=== PATIENT | male | born 1970 | race Caucasian/White ===

== ENCOUNTER → 2019-12-07 | Outpatient (CLI) | payer MEDICARE ==
--- NOTE | 2019-12-07 12:58 | XR ---
EXAMINATION TYPE: XR chest 2V DATE OF EXAM: 12/07/2019 COMPARISON: 08/03/2012 HISTORY: Shortness of breath TECHNIQUE: Frontal and lateral views of the chest are obtained. FINDINGS: Scattered senescent parenchymal changes noted. Hyperinflation compatible with COPD. Right lower lobe infiltrate noted. Correlate for pneumonia. No evidence for atelectasis. Heart size is stable. Mediastinal structures are stable and grossly unremarkable. No evidence for hilar prominence. Degenerative changes dorsal spine. IMPRESSION: 1. Right lower lobe infiltrate noted. Correlate for pneumonia.
--- NOTE | 2019-12-07 14:08 | CT ---
EXAMINATION TYPE: CT chest w con DATE OF EXAM: 12/07/2019 COMPARISON: Radiograph same day HISTORY: 49-year-old male Cough and shortness of breath. J15.0, klebsiella pneumonia. TECHNIQUE: Contiguous axial scanning of the chest after the administration of 80ml mL of Isovue 300. Coronal/sagittal reconstructions performed. CT DLP: 679.9mGycm. Automatic exposure control utilized for a dose reduction. FINDINGS: Left PICC tip seen to the lower left brachiocephalic vein. Heart normal size without pericardial effusion. Minimal scattered coronary artery calcifications are present. Aorta normal caliber with conventional arch vessel branching anatomy. Mild bilateral gynecomastia. Mildly enlarged caliber to the main right and left pulmonary arteries at 3.2 cm each suggesting under lying pulmonary arterial hypertension. There seems to be some prominent lymphoid tissue at the right hilum, possibly reactive. Unable to exc lude pulmonary emboli to the right upper lobe and segmental bronchi, refer to axial image 28 and 27. Possible segmental and subsegmental branch pulmonary embolus left upper lobe, refer to axial images 2 3 and 25. There is motion artifact at the lung bases limiting assessment but additional emboli would be difficu lt to exclude in these locations. No reflux of contrast into the hepatic veins. Possible slight flattening of the interventricular sept um. There is an oblong thick-walled fluid collection along the subpleural region of the posterior right b ase measuring 8.8 x 4.1 x 4.8 cm, reference coronal image 90 and sagittal image 50. Adjacent small ef fusion and patchy density. Postsurgical changes of sleeve gastrectomy with a small hiatal hernia. Partially visualized small fat-containing right paramedian epigastric abdominal wall hernia measuring 2.1 cm wide. 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 IMPRESSION: 1. Unable to exclude bilateral pulmonary emboli. Given large caliber to the right and left pulmonary arteries and slight flattening of the interventricular septum, unable to exclude secondary pulmonary arterial hypertension and early right heart strain. 2. An oblong thick-walled fluid collection in the subpleural region of the posterior right base measu ring 8.8 x 4.8 x 0.1 cm. Findings suspicious for a pulmonary abscess. Adjacent small effusion. 3. Status post sleeve gastrectomy with a small hiatal hernia. A [place] critical message alert has been initiated for Colin Smith MD~[id number] via the [employer] for [employer] Critical Results System on 12/07/2019 2:05 PM. This message alert has been sent to Colin Smith MD~[id number] via the preferences provided by the clinician for the receipt of Radiology Critical Findin gs. Message ID [id number].
== END | disposition home or self-care (01) ==
LOC: RADCTMAIN 11:56
PROVIDERS: ATTEND Internal Medicine Infectious Disease
DX: J94.8 Other specified pleural conditions (principal); Z90.3 Acquired absence of stomach [part of]
CPT/HCPCS: 82565; 84520; 71046; 71260; 36415; Q9967